=== PATIENT | male | born 1965 | race Caucasian/White ===

== ENCOUNTER 2017-08-12 19:37 | Emergency (ER) | payer OTHER ==
[~2017-08-12] VITALS: Ht 177.8 cm; Wt 77.1 kg
[2017-08-12 19:48] VITALS: BP 147/87
[2017-08-12] MEDS ORDERED: IBUPROFEN 600 MG TAB PO ONE (23:15)
== END 2017-08-13 00:04 | disposition home or self-care (01) ==
LOC: EDBD 19:37 → ER 19:37
DX: S70.01XA Contusion of right hip, initial encounter (principal); F17.210 Nicotine dependence, cigarettes, uncomplicated; V03.99XA Pedestrian with other conveyance injured in collision with car, pick-up truck or van, unspecified whether traffic or nontraffic accident, initial encounter; Y93.89 Activity, other specified; Y92.89 Other specified places as the place of occurrence of the external cause; Y99.8 Other external cause status
CPT/HCPCS: 73502

== ENCOUNTER 2017-09-14 19:31 | Emergency (ER) | payer MEDICAID ==
[~2017-09-14] VITALS: Ht 177.8 cm; Wt 70.3 kg
[2017-09-14 20:40] LABS: Basophils # (auto) 0.1 uL; Eosinophils # (auto) 0 uL; Eosinophils % (auto) 0.3 % (0.0-7.0); Hematocrit 33.4 % (41.0-53.0); Hemoglobin 11.6 g/dL (13.5-17.5); Lymphocytes # (auto) 1.7 uL; Mean Corpuscular Hemoglobin 29.9 pg (28.0-32.0); Mean Corpuscular Hgb Conc. 34.6 g/dL (32.0-36.0); Mean Corpuscular Volume 86.2 fL (80.0-100.0); Mean Platelet Volume 6.7 fL (6.9-10.8); Monocytes # (auto) 0.6 uL; Monocytes % (auto) 11.3 % (0.0-12.0); Neutrophils # (auto) 2.9 uL; Neutrophils % (auto) 54.4 % (37.0-80.0); Nucleated Red Blood Cells % 0.3 %; Platelet Count (auto) 275 10^3/uL (140-450); White Blood Cell 5.3 10^3/uL (4.4-10.8)
[2017-09-14 20:59] LABS: BUN/Creatinine Ratio 11.7; Calcium 8.5 mg/dL (8.5-10.1); Potassium 4.6 mmol/L (3.5-5.1)
[2017-09-14 21:02] LABS: Bilirubin, Total 0.2 mg/dL (0.2-1.0); Total Protein 9.9 g/dL (6.4-8.2)
[2017-09-15 02:53] LABS: Urine Bilirubin Negative (Negative); Urine Blood 2+ /uL (Negative); Urine Color Yellow (Yellow); Urine Glucose Normal (Normal); Urine Ketone Negative (Negative); Urine Nitrite Negative (Negative); Urine RBC 27 /hpf (0 - 3); Urine Squamous Epithelial Cell FEW /hpf (<5); Urine Urobilinogen Normal (Negative)
[2017-09-15 09:38] VITALS: BP 129/83
== END 2017-09-15 10:48 | disposition home or self-care (01) ==
LOC: ER 19:31
DX: N43.3 Hydrocele, unspecified (principal); N39.0 Urinary tract infection, site not specified; R59.0 Localized enlarged lymph nodes; E44.1 Mild protein-calorie malnutrition; F17.210 Nicotine dependence, cigarettes, uncomplicated; Z68.22 Body mass index [BMI] 22.0-22.9, adult; Z90.49 Acquired absence of other specified parts of digestive tract
CPT/HCPCS: 36415; 74176; 76870; 80053; 81001; 85025

== ENCOUNTER 2017-10-28 08:36 | Inpatient (IN) | payer MEDICAID, OTHER ==
[~2017-10-28] VITALS: Ht 177.8 cm; Wt 68.0 kg
[2017-10-28 09:48] LABS: Basophils # (auto) 0 uL; Basophils % (auto) 0.1 % (0.0-2.0); Eosinophils # (auto) 0 uL; Eosinophils % (auto) 0.1 % (0.0-7.0); Hematocrit 37.1 % (41.0-53.0); Hemoglobin 12.4 g/dL (13.5-17.5); Lymphocytes # (auto) 0.4 uL; Lymphocytes % (auto) 11.5 % (10.0-50.0); Mean Corpuscular Hemoglobin 27.4 pg (28.0-32.0); Mean Corpuscular Hgb Conc. 33.5 g/dL (32.0-36.0); Mean Corpuscular Volume 81.5 fL (80.0-100.0); Monocytes # (auto) 0.1 uL; Monocytes % (auto) 3.5 % (0.0-12.0); Neutrophils # (auto) 3.1 uL; Neutrophils % (auto) 84.8 % (37.0-80.0); Nucleated Red Blood Cells % 0.6 %; Platelet Count (auto) 230 10^3/uL (140-450); Red Blood Cells 4.55 10^6/uL (4.5-5.90); Red Cell Distribution Width 15.8 % (11.8-14.3); White Blood Cell 3.7 10^3/uL (4.4-10.8)
[2017-10-28 10:02] LABS: Albumin 1.8 g/dL (3.4-5.0); Anion Gap 13 (5-15); Calcium 9.1 mg/dL (8.5-10.1); Carbon Dioxide 17 mmol/L (21-32); Chloride 103 mmol/L (98-107); Glucose 75 mg/dL (74-106); Magnesium 2.6 mg/dL (1.6-2.6); Potassium 4.1 mmol/L (3.5-5.1); Sodium 133 mmol/L (136-145)
[2017-10-28 10:05] LABS: Alanine Aminotransferase 17 U/L (16-61); Aspartate Aminotransferase 41 U/L (15-37); GFR African American 24 mL/min; GFR Non-African American 20 mL/min
[2017-10-28 10:08] LABS: BUN/Creatinine Ratio 26.9; Blood Urea Nitrogen 94 mg/dL (7-18)
[2017-10-28 10:09] LABS: Alkaline Phosphatase 187 U/L (45-117); Bilirubin, Total 0.6 mg/dL (0.2-1.0); Total Protein 8.3 g/dL (6.4-8.2)
[2017-10-28 10:53] LABS: Lactic Acid w/Reflex 2.3 mmol/L (0.4-2.0)
[2017-10-28] MEDS ORDERED: AZITHROMYCIN 500MG/ 250ML 250 ML IV ONE (11:00)
[2017-10-28] MEDS ORDERED: cefTRIAXone 1GM/10ml IVPUSH 10 ML IV ONE (11:00)
[2017-10-28] MEDS ORDERED: SODIUM CHLORIDE 0.9% 1,000 ML IV ONE (11:04)
[2017-10-28] MEDS: SODIUM CHLORIDE 0.9% 1,000 ML IV ONE ×2 (11:26→11:35)
[2017-10-28] MEDS ORDERED: MORPHINE SULFATE 4 MG/ML SYR/VIAL IV PRN (11:30)
[2017-10-28] MEDS ORDERED: SODIUM CHLORIDE 0.9% 2,000 ML IV ONE (11:30)
[2017-10-28] MEDS ORDERED: ACETAMINOPHEN 325 MG TAB PO PRN ×2 (11:30)
[2017-10-28] MEDS ORDERED: ONDANSETRON HCL 4 MG/2 ML VIAL IV PRN (11:30)
[2017-10-28] MEDS ORDERED: NITROGLYCERIN 0.4 MG SL TAB SL PRN (11:30)
[2017-10-28] MEDS ORDERED: OSELTAMIVIR 30 MG CAP PO SCH (12:00)
[2017-10-28] MEDS: HYDROcodone-ACET 5/325MG TAB PO PRN (12:27)
[2017-10-28] MEDS: IPRATROPIUM BROM 0.5 MG/2.5ML INH SOL NEB SCH ×2 (13:05→18:54)
[2017-10-28] MEDS: ALBUTEROL SULF 2.5 MG/0.5ML(0.5%) NEB SOLN NEB SCH ×2 (13:05→18:54)
[2017-10-28] MEDS: SODIUM CHLORIDE 0.9% 1,000 ML IV SCH ×2 (13:06→21:11)
[2017-10-28] MEDS: BOOST PLUS 8 ounce PO SCH ×3 (13:15→21:11)
[2017-10-28 16:42] LABS: Lactic Acid w/Reflex 2.4 mmol/L (0.4-2.0)
[2017-10-28] MEDS ORDERED: INFLUENZA QUAD 2017-2018 0.5 ML SYRG IM ONE (16:45)
[2017-10-28] MEDS ORDERED: PNEUMOCOCCAL VACC POLYS 25 MCG/0.5 ML VIAL IM ONE (16:45)
[2017-10-28] MEDS: MORPHINE SULFATE 4 MG/ML SYR/VIAL IV PRN ×2 (16:59→22:58)
[2017-10-28 17:00] VITALS: BP 109/72
[2017-10-28 20:00] VITALS: BP 108/60
[2017-10-28 20:52] VITALS: BP 109/72
[2017-10-28] MEDS: ASCORBIC ACID 500 MG TAB PO SCH (21:16)
[2017-10-28] MEDS: FAMOTIDINE 20 MG TAB PO SCH (21:16)
[2017-10-28 22:00] VITALS: BP 108/60
[2017-10-28] MEDS ORDERED: OSELTAMIVIR 75 MG CAP PO SCH (22:00)
[2017-10-29] MEDS: ALBUTEROL SULF 2.5 MG/0.5ML(0.5%) NEB SOLN NEB SCH ×4 (00:44→19:15)
[2017-10-29] MEDS: IPRATROPIUM BROM 0.5 MG/2.5ML INH SOL NEB SCH ×4 (00:44→19:15)
[2017-10-29] MEDS: MORPHINE SULFATE 4 MG/ML SYR/VIAL IV PRN (03:00)
[2017-10-29 04:09] LABS: Urine Bacteria NONE SEEN /hpf (None Seen); Urine Blood 1+ /uL (Negative); Urine Hyaline Cast FEW /lpf (0 - 2); Urine Mucus FEW (None Seen); Urine Specific Gravity 1.018 (1.001-1.035); Urine WBC 3 /hpf (0 - 3)
[2017-10-29] MEDS: BOOST PLUS 8 ounce PO SCH ×4 (05:13→22:00)
[2017-10-29] MEDS: SODIUM CHLORIDE 0.9% 1,000 ML IV SCH ×3 (05:14→18:19)
[2017-10-29 05:57] LABS: Hematocrit 33.5 % (41.0-53.0); Mean Corpuscular Hgb Conc. 32.8 g/dL (32.0-36.0); White Blood Cell 6.5 10^3/uL (4.4-10.8)
[2017-10-29 05:59] LABS: Mean Corpuscular Hemoglobin 26.8 pg (28.0-32.0); Mean Corpuscular Volume 81.7 fL (80.0-100.0); Platelet Count (auto) 213 10^3/uL (140-450)
[2017-10-29 06:00] VITALS: BP_SYST 106; BP_SYST 110; BP_DIAS 65; BP_DIAS 66
[2017-10-29 06:10] LABS: Basophils % (manual) 0 (0.0-2.0); Eosinophils % (manual) 0 (0-7); Metamyelocytes % 0
[2017-10-29 06:11] LABS: Blast Cells 0; Myelocytes % 0; Promyelocytes % 0
[2017-10-29 06:12] LABS: Albumin 1.4 g/dL (3.4-5.0); BUN/Creatinine Ratio 32.6; Calcium 8.3 mg/dL (8.5-10.1); Potassium 4.1 mmol/L (3.5-5.1)
[2017-10-29 06:15] LABS: Bilirubin, Total 0.5 mg/dL (0.2-1.0)
[2017-10-29 06:52] LABS: Band Neutrophils % (manual) 21; Lymphocytes % (manual) 16 (10.0-50.0); Monocytes % (manual) 7 (0-12); Reactive Lymphocytes 1
[2017-10-29] MEDS: cefTRIAXone 1GM/10ml IVPUSH 10 ML IV SCH (09:14)
[2017-10-29] MEDS: AZITHROMYCIN 500MG/ 250ML 250 ML IV SCH (10:47)
[2017-10-29] MEDS: FAMOTIDINE 20 MG TAB PO SCH ×2 (10:47→21:53)
[2017-10-29] MEDS: ASCORBIC ACID 500 MG TAB PO SCH ×2 (10:47→21:54)
[2017-10-29] MEDS: MULTIPLE VITAMIN TAB PO SCH (10:47)
[2017-10-29 13:00] VITALS: BP 124/71
[2017-10-29 17:00] VITALS: BP 116/67
[2017-10-29 21:48] VITALS: BP 130/73
[2017-10-30 05:05] VITALS: BP 139/73
[2017-10-30] MEDS: IPRATROPIUM BROM 0.5 MG/2.5ML INH SOL NEB SCH ×4 (05:56→19:12)
[2017-10-30] MEDS: ALBUTEROL SULF 2.5 MG/0.5ML(0.5%) NEB SOLN NEB SCH ×4 (05:56→19:12)
[2017-10-30] MEDS: BOOST PLUS 8 ounce PO SCH ×4 (06:00→23:00)
[2017-10-30] MEDS: SODIUM CHLORIDE 0.9% 1,000 ML IV SCH ×2 (06:46→15:30)
[2017-10-30 07:25] LABS: Basophils # (auto) 0 uL; Eosinophils # (auto) 0 uL; Monocytes # (auto) 0.2 uL
[2017-10-30 07:29] LABS: Basophils % (auto) 0.1 % (0.0-2.0); Eosinophils % (auto) 0.1 % (0.0-7.0); Hematocrit 33.2 % (41.0-53.0); Hemoglobin 11.2 g/dL (13.5-17.5); Lymphocytes # (auto) 0.9 uL; Lymphocytes % (auto) 8.9 % (10.0-50.0); Mean Corpuscular Hemoglobin 27.1 pg (28.0-32.0); Mean Corpuscular Hgb Conc. 33.6 g/dL (32.0-36.0); Mean Corpuscular Volume 80.5 fL (80.0-100.0); Monocytes % (auto) 2.2 % (0.0-12.0); Neutrophils # (auto) 8.6 uL; Neutrophils % (auto) 88.7 % (37.0-80.0); Nucleated Red Blood Cells % 0.2 %; Platelet Count (auto) 238 10^3/uL (140-450); Red Blood Cells 4.13 10^6/uL (4.5-5.90); Red Cell Distribution Width 16.1 % (11.8-14.3); White Blood Cell 9.7 10^3/uL (4.4-10.8)
[2017-10-30 07:43] LABS: BUN/Creatinine Ratio 41.6; Calcium 9.5 mg/dL (8.5-10.1); Potassium 4.2 mmol/L (3.5-5.1)
[2017-10-30 08:49] VITALS: BP 122/74
[2017-10-30] MEDS: cefTRIAXone 1GM/10ml IVPUSH 10 ML IV SCH (10:22)
[2017-10-30] MEDS: AZITHROMYCIN 500MG/ 250ML 250 ML IV SCH (10:22)
[2017-10-30] MEDS: ASCORBIC ACID 500 MG TAB PO SCH ×2 (10:22→23:00)
[2017-10-30] MEDS: FAMOTIDINE 20 MG TAB PO SCH ×2 (10:22→23:00)
[2017-10-30] MEDS: MULTIPLE VITAMIN TAB PO SCH (10:22)
[2017-10-30 12:48] VITALS: BP 116/73
[2017-10-30 16:36] VITALS: BP 126/68
[2017-10-30 22:00] VITALS: BP 138/86
[2017-10-31] MEDS: SODIUM CHLORIDE 0.9% 1,000 ML IV SCH ×3 (00:02→17:33)
[2017-10-31] MEDS: IPRATROPIUM BROM 0.5 MG/2.5ML INH SOL NEB SCH ×5 (00:23→22:33)
[2017-10-31] MEDS: ALBUTEROL SULF 2.5 MG/0.5ML(0.5%) NEB SOLN NEB SCH ×5 (00:23→22:33)
[2017-10-31 05:00] VITALS: BP 129/72
[2017-10-31] MEDS: BOOST PLUS 8 ounce PO SCH ×4 (06:00→22:00)
[2017-10-31 07:03] LABS: Mean Corpuscular Hemoglobin 26.4 pg (28.0-32.0); Platelet Count (auto) 212 10^3/uL (140-450)
[2017-10-31 07:06] LABS: Hematocrit 30.9 % (41.0-53.0); Hemoglobin 10.2 g/dL (13.5-17.5); Mean Corpuscular Hgb Conc. 32.8 g/dL (32.0-36.0); Mean Corpuscular Volume 80.4 fL (80.0-100.0); Red Blood Cells 3.85 10^6/uL (4.5-5.90); White Blood Cell 11.3 10^3/uL (4.4-10.8)
[2017-10-31 07:20] LABS: Band Neutrophils % (manual) 0; Basophils % (manual) 0 (0.0-2.0); Blast Cells 0; Eosinophils % (manual) 0 (0-7); Promyelocytes % 0; Reactive Lymphocytes 0
[2017-10-31 07:23] LABS: BUN/Creatinine Ratio 40.9; Calcium 9.2 mg/dL (8.5-10.1); Potassium 4.3 mmol/L (3.5-5.1)
[2017-10-31 08:00] VITALS: BP 140/80
[2017-10-31 08:18] LABS: Lymphocytes % (manual) 7 (10.0-50.0); Metamyelocytes % 1; Monocytes % (manual) 4 (0-12); Myelocytes % 1
[2017-10-31 09:00] VITALS: BP 140/80
[2017-10-31] MEDS: cefTRIAXone 1GM/10ml IVPUSH 10 ML IV SCH (09:17)
[2017-10-31] MEDS: MULTIPLE VITAMIN TAB PO SCH (09:18)
[2017-10-31] MEDS: AZITHROMYCIN 500MG/ 250ML 250 ML IV SCH (09:18)
[2017-10-31] MEDS: ASCORBIC ACID 500 MG TAB PO SCH ×2 (09:18→23:02)
[2017-10-31] MEDS: FAMOTIDINE 20 MG TAB PO SCH ×2 (09:19→22:00)
[2017-10-31 16:59] VITALS: BP 141/81
[2017-10-31 22:00] VITALS: BP 115/75
[2017-10-31 22:41] VITALS: BP 115/75
[2017-11-01] MEDS: SODIUM CHLORIDE 0.9% 1,000 ML IV SCH ×3 (01:05→18:07)
[2017-11-01 05:00] VITALS: BP 123/73
[2017-11-01] MEDS: BOOST PLUS 8 ounce PO SCH ×4 (05:49→22:23)
[2017-11-01 06:50] LABS: Hematocrit 31.6 % (41.0-53.0); Hemoglobin 10.5 g/dL (13.5-17.5); Mean Corpuscular Hemoglobin 27.5 pg (28.0-32.0); Mean Corpuscular Hgb Conc. 33.4 g/dL (32.0-36.0); Mean Corpuscular Volume 82.5 fL (80.0-100.0); Platelet Count (auto) 162 10^3/uL (140-450); Red Blood Cells 3.83 10^6/uL (4.5-5.90); Red Cell Distribution Width 15.9 % (11.8-14.3)
[2017-11-01 06:59] LABS: BUN/Creatinine Ratio 37.7; Calcium 9.2 mg/dL (8.5-10.1); Potassium 3.9 mmol/L (3.5-5.1)
[2017-11-01 07:17] LABS: Band Neutrophils % (manual) 0
[2017-11-01 07:18] LABS: Basophils % (manual) 0 (0.0-2.0); Blast Cells 0; Eosinophils % (manual) 0 (0-7); Metamyelocytes % 0; Myelocytes % 0; Promyelocytes % 0; Reactive Lymphocytes 0
[2017-11-01] MEDS: IPRATROPIUM BROM 0.5 MG/2.5ML INH SOL NEB SCH ×3 (07:25→18:39)
[2017-11-01] MEDS: ALBUTEROL SULF 2.5 MG/0.5ML(0.5%) NEB SOLN NEB SCH ×3 (07:25→18:39)
[2017-11-01 08:00] VITALS: BP 112/71
[2017-11-01 08:32] LABS: Lymphocytes % (manual) 7 (10.0-50.0); Monocytes % (manual) 6 (0-12)
[2017-11-01] MEDS: cefTRIAXone 1GM/10ml IVPUSH 10 ML IV SCH (09:18)
[2017-11-01] MEDS: MULTIPLE VITAMIN TAB PO SCH (09:20)
[2017-11-01] MEDS: AZITHROMYCIN 500MG/ 250ML 250 ML IV SCH (09:20)
[2017-11-01] MEDS: ASCORBIC ACID 500 MG TAB PO SCH ×2 (09:20→22:23)
[2017-11-01 11:18] LABS: INR 0.99 (0.9-1.15); Prothrombin Time 10.8 sec (9.37-12.3)
[2017-11-01] MEDS: FAMOTIDINE 20 MG TAB PO SCH ×2 (11:38→22:23)
[2017-11-01 12:16] VITALS: BP 143/81
[2017-11-01] MEDS ORDERED: LIDOCAINE 2%HCL (LOCAL ANESTH.) INJ 20ML MDV ONE (13:07)
[2017-11-01] MEDS ORDERED: MIDAZOLAM HCL 1MG/1ML-2 ML VIAL ONE (13:18)
[2017-11-01] MEDS ORDERED: fentaNYL CITRATE 100 MCG/2 ML VL ONE (13:18)
[2017-11-01 14:35] VITALS: BP 143/81
[2017-11-01 14:47] LABS: Partial Thromboplastin Time 28.9 sec (22.64-33.71); Prothrombin Time 10.9 sec (9.37-12.3)
[2017-11-01 16:41] VITALS: BP 140/78
[2017-11-01 18:18] LABS: BUN/Creatinine Ratio 36.2; Calcium 8.7 mg/dL (8.5-10.1); Potassium 3.8 mmol/L (3.5-5.1)
[2017-11-01 22:00] VITALS: BP 138/81
[2017-11-02] MEDS: SODIUM CHLORIDE 0.9% 1,000 ML IV SCH ×3 (01:31→17:44)
[2017-11-02] MEDS: BOOST PLUS 8 ounce PO SCH ×4 (04:32→22:04)
[2017-11-02 05:00] VITALS: BP 136/76
[2017-11-02] MEDS: IPRATROPIUM BROM 0.5 MG/2.5ML INH SOL NEB SCH ×3 (06:12→19:07)
[2017-11-02] MEDS: ALBUTEROL SULF 2.5 MG/0.5ML(0.5%) NEB SOLN NEB SCH ×3 (06:12→19:08)
[2017-11-02 06:15] LABS: Mean Corpuscular Hemoglobin 26.2 pg (28.0-32.0); White Blood Cell 8.1 10^3/uL (4.4-10.8)
[2017-11-02 06:18] LABS: Hematocrit 31.3 % (41.0-53.0); Hemoglobin 10.4 g/dL (13.5-17.5); Mean Corpuscular Hgb Conc. 33.2 g/dL (32.0-36.0); Mean Corpuscular Volume 78.9 fL (80.0-100.0); Platelet Count (auto) 140 10^3/uL (140-450); Red Blood Cells 3.96 10^6/uL (4.5-5.90); Red Cell Distribution Width 15.8 % (11.8-14.3)
[2017-11-02 06:26] LABS: Basophils % (manual) 0 (0.0-2.0); Blast Cells 0; Eosinophils % (manual) 0 (0-7); Metamyelocytes % 0; Myelocytes % 0; Promyelocytes % 0; Reactive Lymphocytes 0
[2017-11-02 06:29] LABS: BUN/Creatinine Ratio 33.7; Calcium 8.6 mg/dL (8.5-10.1); Potassium 3.8 mmol/L (3.5-5.1)
[2017-11-02] MEDS ORDERED: fentaNYL CITRATE 100 MCG/2 ML VL ONE (08:24)
[2017-11-02] MEDS ORDERED: MIDAZOLAM HCL 1MG/1ML-2 ML VIAL ONE (08:24)
[2017-11-02] MEDS ORDERED: ROCURONIUM 10MG/ML 10ML VIAL IV ONE (08:25)
[2017-11-02] MEDS ORDERED: ceFAZolin 1GM/50ML 50 ML IV ONE (08:34)
[2017-11-02] MEDS ORDERED: PROPOFOL 10 MG/ML 20 ML IV ONE (08:41)
[2017-11-02] MEDS ORDERED: SUCCINYLCHOLINE CHLORIDE 20 MG/ML 10ML VIAL IV ONE (08:42)
[2017-11-02 09:00] VITALS: BP 122/78
[2017-11-02] MEDS: cefTRIAXone 1GM/10ml IVPUSH 10 ML IV SCH (09:00)
[2017-11-02] MEDS ORDERED: ONDANSETRON HCL 4 MG/2 ML VIAL ONE (09:16)
[2017-11-02] MEDS ORDERED: NEOSTIGMINE 1 MG/ML INJ (10mg/10ML VIAL) ONE (09:16)
[2017-11-02] MEDS ORDERED: GLYCOPYRROLATE 0.2 MG/ML 1ML VIAL ONE (09:17)
[2017-11-02] MEDS ORDERED: HYDROmorphone HCL 2 MG/ML VL IV PRN (09:45)
[2017-11-02] MEDS ORDERED: METOCLOPRAMIDE HCL 5MG/ml INJ 2ml VIAL IV ONE (09:45)
[2017-11-02] MEDS: AZITHROMYCIN 500MG/ 250ML 250 ML IV SCH (09:53)
[2017-11-02] MEDS: FAMOTIDINE 20 MG TAB PO SCH ×2 (09:53→22:04)
[2017-11-02] MEDS: MULTIPLE VITAMIN TAB PO SCH (09:53)
[2017-11-02] MEDS: ASCORBIC ACID 500 MG TAB PO SCH ×2 (09:54→22:05)
[2017-11-02] MEDS ORDERED: MORPHINE SULFATE 4 MG/ML SYR/VIAL ONE (10:03)
[2017-11-02] MEDS ORDERED: MORPHINE SULFATE 4 MG/ML SYR/VIAL IV ONE (10:15)
[2017-11-02] MEDS ORDERED: TUBERCULIN PPD 5 UNIT/0.1 ML ID ONE (11:00)
[2017-11-02 11:06] LABS: Band Neutrophils % (manual) 2; Lymphocytes % (manual) 8 (10.0-50.0); Monocytes % (manual) 3 (0-12)
[2017-11-02 13:00] VITALS: BP 116/78
[2017-11-02 16:59] VITALS: BP 120/73
[2017-11-02] MEDS ORDERED: cefTRIAXone 1GM/10ml IVPUSH 10 ML IV ONE (17:45)
[2017-11-02] MEDS: HYDROcodone-ACET 5/325MG TAB PO PRN (18:26)
[2017-11-02 19:57] LABS: Basophils % (manual) 0 (0.0-2.0); Blast Cells 0; Monocytes % (manual) 0 (0-12); Promyelocytes % 0
[2017-11-02 20:34] LABS: Platelet Count (auto) 137 10^3/uL (140-450)
[2017-11-02 21:15] LABS: Band Neutrophils % (manual) 4; Eosinophils % (manual) 3 (0-7); Lymphocytes % (manual) 10 (10.0-50.0); Metamyelocytes % 1; Myelocytes % 1; Reactive Lymphocytes 1
[2017-11-02 21:56] VITALS: BP 118/71
[2017-11-03] MEDS: ALBUTEROL SULF 2.5 MG/0.5ML(0.5%) NEB SOLN NEB SCH ×4 (00:48→18:00)
[2017-11-03] MEDS: IPRATROPIUM BROM 0.5 MG/2.5ML INH SOL NEB SCH ×4 (00:48→18:00)
[2017-11-03] MEDS: SODIUM CHLORIDE 0.9% 1,000 ML IV SCH ×3 (01:49→12:43)
[2017-11-03] MEDS: HYDROcodone-ACET 5/325MG TAB PO PRN ×3 (03:04→22:25)
[2017-11-03 05:00] VITALS: BP 113/70
[2017-11-03 05:40] LABS: Mean Corpuscular Volume 82.8 fL (80.0-100.0)
[2017-11-03 05:43] LABS: Hematocrit 32.9 % (41.0-53.0); Hemoglobin 10.9 g/dL (13.5-17.5); Mean Corpuscular Hemoglobin 27.3 pg (28.0-32.0); Platelet Count (auto) 138 10^3/uL (140-450); Red Blood Cells 3.98 10^6/uL (4.5-5.90); Red Cell Distribution Width 15.9 % (11.8-14.3); White Blood Cell 7.2 10^3/uL (4.4-10.8)
[2017-11-03 05:47] LABS: BUN/Creatinine Ratio 31.3; Basophils % (manual) 0 (0.0-2.0); Blast Cells 0; Calcium 8.1 mg/dL (8.5-10.1); Eosinophils % (manual) 0 (0-7); Metamyelocytes % 0; Myelocytes % 0; Potassium 4.4 mmol/L (3.5-5.1); Promyelocytes % 0; Reactive Lymphocytes 0
[2017-11-03] MEDS: BOOST PLUS 8 ounce PO SCH ×3 (06:02→22:25)
[2017-11-03 07:39] LABS: Band Neutrophils % (manual) 5; Lymphocytes % (manual) 3 (10.0-50.0); Monocytes % (manual) 3 (0-12)
[2017-11-03 09:00] VITALS: BP 129/74
[2017-11-03] MEDS: ASCORBIC ACID 500 MG TAB PO SCH ×2 (09:56→22:25)
[2017-11-03] MEDS: cefTRIAXone 1GM/10ml IVPUSH 10 ML IV SCH (09:56)
[2017-11-03] MEDS: MULTIPLE VITAMIN TAB PO SCH (09:56)
[2017-11-03] MEDS: FAMOTIDINE 20 MG TAB PO SCH ×2 (09:56→22:25)
[2017-11-03] MEDS: AZITHROMYCIN 500MG/ 250ML 250 ML IV SCH (09:56)
[2017-11-03 13:00] VITALS: BP 118/76
[2017-11-03] MEDS: MORPHINE SULFATE 4 MG/ML SYR/VIAL IV PRN (16:17)
[2017-11-03 16:41] VITALS: BP 132/75
[2017-11-03 22:00] VITALS: BP 126/80
[2017-11-04] MEDS: SODIUM CHLORIDE 0.9% 1,000 ML IV SCH ×3 (04:45→18:53)
[2017-11-04] MEDS: MORPHINE SULFATE 4 MG/ML SYR/VIAL IV PRN (04:45)
[2017-11-04 05:00] VITALS: BP 128/80
[2017-11-04] MEDS: BOOST PLUS 8 ounce PO SCH ×4 (05:41→22:04)
[2017-11-04] MEDS: IPRATROPIUM BROM 0.5 MG/2.5ML INH SOL NEB SCH ×5 (07:02→19:00)
[2017-11-04] MEDS: ALBUTEROL SULF 2.5 MG/0.5ML(0.5%) NEB SOLN NEB SCH ×5 (07:02→19:00)
[2017-11-04 09:00] VITALS: BP 148/76
[2017-11-04 09:16] VITALS: BP 128/80
[2017-11-04] MEDS: cefTRIAXone 1GM/10ml IVPUSH 10 ML IV SCH (09:17)
[2017-11-04] MEDS: MULTIPLE VITAMIN TAB PO SCH (09:18)
[2017-11-04] MEDS: ASCORBIC ACID 500 MG TAB PO SCH ×2 (09:18→22:04)
[2017-11-04] MEDS: FAMOTIDINE 20 MG TAB PO SCH ×2 (09:18→22:03)
[2017-11-04] MEDS: AZITHROMYCIN 500MG/ 250ML 250 ML IV SCH (09:18)
[2017-11-04 12:57] VITALS: BP 137/76
[2017-11-04] MEDS ORDERED: MEPERIDINE HCL (50 MG/ML) 1 ML VIAL IM ONE (13:30)
[2017-11-04] MEDS ORDERED: LIDOCAINE 2%HCL (LOCAL ANESTH.) INJ 20ML MDV IJ ONE (13:30)
[2017-11-04] MEDS ORDERED: LIDOCAINE HCL 2 % INJ 2ML MPF ONE (13:36)
[2017-11-04] MEDS ORDERED: SODIUM CHLORIDE LOCK 10 ML ONE ×2 (13:58→14:05)
[2017-11-04 13:59] LABS: Protein, Urine 117.7 mg/dL (0.0-11.9)
[2017-11-04] MEDS ORDERED: MIDAZOLAM HCL 5 MG/ML-1ML VIAL ONE (13:59)
[2017-11-04] MEDS ORDERED: LIDOCAINE 2%HCL (LOCAL ANESTH.) INJ 20ML MDV ONE (14:04)
[2017-11-04] MEDS ORDERED: LIDOCAINE HCL 2% TOP JELLY 5ML TOP ONE (14:05)
[2017-11-04] MEDS ORDERED: EPINEPHrine HCL 1 MG/1 ML AMP ONE (14:06)
[2017-11-04] MEDS ORDERED: BENZOCAINE (DENTAL) 20 % SPRAY 60ML MT ONE (14:21)
[2017-11-04] MEDS: MIDAZOLAM HCL 5 MG/ML-1ML VIAL ONE ×5 (14:22→14:33)
[2017-11-04] MEDS ORDERED: SODIUM CHLORIDE LOCK 20 ML ONE (14:46)
[2017-11-04] MEDS ORDERED: NICOTINE 21MG/24 HR TOPICAL PATCH TD ONE (16:30)
[2017-11-04 17:00] VITALS: BP 134/80
[2017-11-04 22:00] VITALS: BP 124/83
[2017-11-05] MEDS: IPRATROPIUM BROM 0.5 MG/2.5ML INH SOL NEB SCH ×5 (00:33→23:50)
[2017-11-05] MEDS: ALBUTEROL SULF 2.5 MG/0.5ML(0.5%) NEB SOLN NEB SCH ×5 (00:33→23:50)
[2017-11-05 05:00] VITALS: BP 131/71
[2017-11-05] MEDS: SODIUM CHLORIDE 0.9% 1,000 ML IV SCH ×3 (05:00→21:33)
[2017-11-05] MEDS: BOOST PLUS 8 ounce PO SCH ×4 (06:26→23:33)
[2017-11-05] MEDS: MORPHINE SULFATE 4 MG/ML SYR/VIAL IV PRN ×4 (07:46→23:34)
[2017-11-05 09:00] VITALS: BP 125/81
[2017-11-05] MEDS: MULTIPLE VITAMIN TAB PO SCH (10:13)
[2017-11-05] MEDS: ASCORBIC ACID 500 MG TAB PO SCH ×2 (10:13→23:33)
[2017-11-05] MEDS: AZITHROMYCIN 250 MG TAB PO SCH (10:13)
[2017-11-05] MEDS: FAMOTIDINE 20 MG TAB PO SCH ×2 (10:13→23:33)
[2017-11-05] MEDS: NICOTINE 21MG/24 HR TOPICAL PATCH TD SCH (10:14)
[2017-11-05] MEDS: cefTRIAXone 1GM/10ml IVPUSH 10 ML IV SCH (10:18)
[2017-11-05 13:00] VITALS: BP 132/77
[2017-11-05 17:00] VITALS: BP 143/80
[2017-11-05 22:36] VITALS: BP 121/77
[2017-11-06 05:37] VITALS: BP 119/84
[2017-11-06] MEDS: SODIUM CHLORIDE 0.9% 1,000 ML IV SCH ×3 (05:50→21:17)
[2017-11-06] MEDS: BOOST PLUS 8 ounce PO SCH ×4 (06:00→22:00)
[2017-11-06] MEDS: IPRATROPIUM BROM 0.5 MG/2.5ML INH SOL NEB SCH ×3 (06:00→18:00)
[2017-11-06] MEDS: ALBUTEROL SULF 2.5 MG/0.5ML(0.5%) NEB SOLN NEB SCH ×3 (06:00→18:00)
[2017-11-06 07:09] LABS: Basophils # (auto) 0.1 uL; Basophils % (auto) 0.6 % (0.0-2.0); Eosinophils # (auto) 0 uL; Eosinophils % (auto) 0.4 % (0.0-7.0); Hematocrit 29.1 % (41.0-53.0); Hemoglobin 9.7 g/dL (13.5-17.5); Lymphocytes # (auto) 1.2 uL; Lymphocytes % (auto) 12.7 % (10.0-50.0); Mean Corpuscular Hgb Conc. 33.3 g/dL (32.0-36.0); Monocytes # (auto) 0.7 uL; Monocytes % (auto) 7.9 % (0.0-12.0); Neutrophils # (auto) 7.1 uL; Neutrophils % (auto) 78.4 % (37.0-80.0); Nucleated Red Blood Cells % 0.2 %; Platelet Count (auto) 430 10^3/uL (140-450); Red Blood Cells 3.59 10^6/uL (4.5-5.90); Red Cell Distribution Width 15.4 % (11.8-14.3)
[2017-11-06 07:16] LABS: Albumin 1.1 g/dL (3.4-5.0); BUN/Creatinine Ratio 18.5; Bilirubin, Total 0.2 mg/dL (0.2-1.0); Calcium 7.6 mg/dL (8.5-10.1); Potassium 3.7 mmol/L (3.5-5.1); Total Protein 6.4 g/dL (6.4-8.2)
[2017-11-06 09:00] VITALS: BP 135/75
[2017-11-06] MEDS: cefTRIAXone 1GM/10ml IVPUSH 10 ML IV SCH (09:00)
[2017-11-06] MEDS: FAMOTIDINE 20 MG TAB PO SCH ×2 (10:31→21:14)
[2017-11-06] MEDS: MULTIPLE VITAMIN TAB PO SCH (10:31)
[2017-11-06] MEDS: AZITHROMYCIN 250 MG TAB PO SCH (10:32)
[2017-11-06] MEDS: ASCORBIC ACID 500 MG TAB PO SCH ×2 (10:32→21:14)
[2017-11-06] MEDS: NICOTINE 21MG/24 HR TOPICAL PATCH TD SCH (10:33)
[2017-11-06 12:51] VITALS: BP 129/78
[2017-11-06] MEDS ORDERED: VANCOMYCIN PER PHARMACY 0 MG IV SCH (13:30)
[2017-11-06 17:00] VITALS: BP 130/77
[2017-11-06] MEDS: VANCOMYCIN 1,250 MG in D5W 5% 250 ML IV SCH ×2 (21:15→21:17)
[2017-11-06] MEDS: HYDROcodone-ACET 5/325MG TAB PO PRN (21:15)
[2017-11-07] VITALS (7 sets, daily range): BP systolic 126–140; BP diastolic 74–94
[2017-11-07] MEDS: BOOST PLUS 8 ounce PO SCH ×4 (06:00→21:24)
[2017-11-07 06:36] LABS: Albumin 1.2 g/dL (3.4-5.0); Potassium 3.7 mmol/L (3.5-5.1)
[2017-11-07 06:43] LABS: BUN/Creatinine Ratio 18.1; Bilirubin, Total 0.3 mg/dL (0.2-1.0); Total Protein 6.7 g/dL (6.4-8.2)
[2017-11-07] MEDS: SODIUM CHLORIDE 0.9% 1,000 ML IV SCH ×3 (06:44→23:30)
[2017-11-07] MEDS: IPRATROPIUM BROM 0.5 MG/2.5ML INH SOL NEB SCH ×4 (06:46→18:00)
[2017-11-07] MEDS: ALBUTEROL SULF 2.5 MG/0.5ML(0.5%) NEB SOLN NEB SCH ×4 (06:46→18:00)
[2017-11-07] MEDS: cefTRIAXone 1GM/10ml IVPUSH 10 ML IV SCH (10:46)
[2017-11-07] MEDS: AZITHROMYCIN 250 MG TAB PO SCH (11:11)
[2017-11-07] MEDS: ASCORBIC ACID 500 MG TAB PO SCH ×2 (11:12→21:24)
[2017-11-07] MEDS: FAMOTIDINE 20 MG TAB PO SCH ×2 (11:12→21:24)
[2017-11-07] MEDS: MULTIPLE VITAMIN TAB PO SCH (11:13)
[2017-11-07] MEDS: HYDROcodone-ACET 5/325MG TAB PO PRN ×2 (11:14→15:50)
[2017-11-07] MEDS: NICOTINE 21MG/24 HR TOPICAL PATCH TD SCH (11:15)
[2017-11-07] MEDS: VANCOMYCIN 1,250 MG in D5W 5% 250 ML IV SCH (15:18)
[2017-11-08] MEDS: HYDROcodone-ACET 5/325MG TAB PO PRN ×2 (00:01→22:05)
[2017-11-08] MEDS: VANCOMYCIN 1,250 MG in D5W 5% 250 ML IV SCH (03:00)
[2017-11-08] MEDS: BOOST PLUS 8 ounce PO SCH ×4 (04:03→21:56)
[2017-11-08 05:30] VITALS: BP 127/79
[2017-11-08 05:55] LABS: Potassium 4.2 mmol/L (3.5-5.1)
[2017-11-08 06:00] LABS: Albumin 1.2 g/dL (3.4-5.0); BUN/Creatinine Ratio 16.5; Calcium 7.6 mg/dL (8.5-10.1)
[2017-11-08] MEDS: ALBUTEROL SULF 2.5 MG/0.5ML(0.5%) NEB SOLN NEB SCH ×4 (06:00→19:22)
[2017-11-08] MEDS: IPRATROPIUM BROM 0.5 MG/2.5ML INH SOL NEB SCH ×4 (06:00→19:21)
[2017-11-08 06:06] LABS: Bilirubin, Total 0.2 mg/dL (0.2-1.0); Total Protein 6.8 g/dL (6.4-8.2)
[2017-11-08] MEDS: SODIUM CHLORIDE 0.9% 1,000 ML IV SCH ×2 (09:07→16:13)
[2017-11-08] MEDS: cefTRIAXone 1GM/10ml IVPUSH 10 ML IV SCH (09:33)
[2017-11-08] MEDS: MULTIPLE VITAMIN TAB PO SCH ×2 (10:00→10:27)
[2017-11-08] MEDS: NICOTINE 21MG/24 HR TOPICAL PATCH TD SCH ×2 (10:00→10:27)
[2017-11-08] MEDS: AZITHROMYCIN 250 MG TAB PO SCH ×2 (10:00→10:27)
[2017-11-08] MEDS: ASCORBIC ACID 500 MG TAB PO SCH ×3 (10:00→21:55)
[2017-11-08] MEDS: FAMOTIDINE 20 MG TAB PO SCH ×3 (10:00→21:55)
[2017-11-08] MEDS: VANCOMYCIN 1,500 MG in D5W 5% 250 ML IV SCH (15:37)
[2017-11-08 16:50] VITALS: BP 137/71
[2017-11-08] MEDS: PRO-STAT 64 30ML PO SCH (21:56)
[2017-11-08 21:58] VITALS: BP 128/79
[2017-11-09] MEDS: VANCOMYCIN 1,500 MG in D5W 5% 250 ML IV SCH (02:32)
[2017-11-09] MEDS: SODIUM CHLORIDE 0.9% 1,000 ML IV SCH ×3 (02:32→17:38)
[2017-11-09 05:17] VITALS: BP 125/74
[2017-11-09] MEDS: ALBUTEROL SULF 2.5 MG/0.5ML(0.5%) NEB SOLN NEB SCH ×3 (06:21→20:06)
[2017-11-09] MEDS: IPRATROPIUM BROM 0.5 MG/2.5ML INH SOL NEB SCH ×3 (06:21→20:06)
[2017-11-09] MEDS: PRO-STAT 64 30ML PO SCH ×3 (06:36→21:36)
[2017-11-09] MEDS: BOOST PLUS 8 ounce PO SCH ×3 (06:37→21:36)
[2017-11-09 07:23] LABS: Potassium 3.6 mmol/L (3.5-5.1)
[2017-11-09 07:29] LABS: Albumin 1.2 g/dL (3.4-5.0); BUN/Creatinine Ratio 17.7; Bilirubin, Total 0.2 mg/dL (0.2-1.0); Calcium 7.3 mg/dL (8.5-10.1); Total Protein 6.8 g/dL (6.4-8.2)
[2017-11-09 09:00] VITALS: BP 119/77
[2017-11-09] MEDS: NICOTINE 21MG/24 HR TOPICAL PATCH TD SCH (10:37)
[2017-11-09] MEDS: ASCORBIC ACID 500 MG TAB PO SCH ×2 (10:37→21:34)
[2017-11-09] MEDS: FAMOTIDINE 20 MG TAB PO SCH ×2 (10:38→21:35)
[2017-11-09] MEDS: MULTIPLE VITAMIN TAB PO SCH (10:38)
[2017-11-09 13:00] VITALS: BP 123/85
[2017-11-09] MEDS: FLORASTOR (S. BOULARDII) 250 MG CAP PO SCH (14:21)
[2017-11-09] MEDS: CLINDAMYCIN 900MG IV 50 ML IV SCH ×2 (14:22→21:35)
[2017-11-09] MEDS: MORPHINE SULFATE 4 MG/ML SYR/VIAL IV PRN (16:30)
[2017-11-09 17:00] VITALS: BP 141/88
[2017-11-09 21:30] VITALS: BP 134/79
[2017-11-09] MEDS: TEMAZEPAM 15 MG CAP PO PRN (21:34)
[2017-11-09] MEDS: HYDROcodone-ACET 5/325MG TAB PO PRN (21:34)
[2017-11-10] MEDS: IPRATROPIUM BROM 0.5 MG/2.5ML INH SOL NEB SCH ×4 (00:21→19:05)
[2017-11-10] MEDS: ALBUTEROL SULF 2.5 MG/0.5ML(0.5%) NEB SOLN NEB SCH ×4 (00:21→19:05)
[2017-11-10 05:00] VITALS: BP 137/85
[2017-11-10] MEDS: CLINDAMYCIN 900MG IV 50 ML IV SCH ×3 (06:33→21:36)
[2017-11-10] MEDS: SODIUM CHLORIDE 0.9% 1,000 ML IV SCH ×3 (06:33→17:22)
[2017-11-10] MEDS: PRO-STAT 64 30ML PO SCH ×3 (06:34→22:37)
[2017-11-10] MEDS: BOOST PLUS 8 ounce PO SCH ×4 (06:34→22:00)
[2017-11-10 08:13] VITALS: BP 107/62
[2017-11-10 09:16] VITALS: BP 107/62
[2017-11-10] MEDS: FLORASTOR (S. BOULARDII) 250 MG CAP PO SCH (10:12)
[2017-11-10] MEDS: ASCORBIC ACID 500 MG TAB PO SCH ×2 (10:12→21:36)
[2017-11-10] MEDS: FAMOTIDINE 20 MG TAB PO SCH ×2 (10:12→21:36)
[2017-11-10] MEDS: MULTIPLE VITAMIN TAB PO SCH (10:12)
[2017-11-10] MEDS: NICOTINE 21MG/24 HR TOPICAL PATCH TD SCH (10:14)
[2017-11-10 11:15] LABS: Basophils # (auto) 0.1 uL; Eosinophils # (auto) 0 uL; Hemoglobin 8.9 g/dL (13.5-17.5); Lymphocytes # (auto) 1.2 uL; Mean Corpuscular Volume 80.4 fL (80.0-100.0); Monocytes # (auto) 0.8 uL; Neutrophils # (auto) 3.4 uL; White Blood Cell 5.5 10^3/uL (4.4-10.8)
[2017-11-10 11:17] LABS: Eosinophils % (auto) 0.7 % (0.0-7.0); Lymphocytes % (auto) 21.5 % (10.0-50.0); Mean Corpuscular Hemoglobin 26.5 pg (28.0-32.0); Mean Corpuscular Hgb Conc. 32.9 g/dL (32.0-36.0); Monocytes % (auto) 14.1 % (0.0-12.0); Neutrophils % (auto) 61.7 % (37.0-80.0); Nucleated Red Blood Cells % 0.1 %; Platelet Count (auto) 579 10^3/uL (140-450); Red Blood Cells 3.36 10^6/uL (4.5-5.90); Red Cell Distribution Width 15.2 % (11.8-14.3)
[2017-11-10 11:32] LABS: Albumin 1.1 g/dL (3.4-5.0); BUN/Creatinine Ratio 12.4; Bilirubin, Total 0.1 mg/dL (0.2-1.0); Calcium 6.7 mg/dL (8.5-10.1); Potassium 3.7 mmol/L (3.5-5.1); Total Protein 7.2 g/dL (6.4-8.2)
[2017-11-10 12:24] VITALS: BP 123/77
[2017-11-10] MEDS ORDERED: HYDROcodone-ACET 5/325MG TAB PO PRN (12:30)
[2017-11-10 17:07] VITALS: BP 140/82
[2017-11-10] MEDS: HYDROcodone-ACET 5/325MG TAB PO PRN (17:22)
[2017-11-10] MEDS: TEMAZEPAM 15 MG CAP PO PRN (21:36)
[2017-11-10 22:00] VITALS: BP 122/79
[2017-11-11] MEDS: IPRATROPIUM BROM 0.5 MG/2.5ML INH SOL NEB SCH ×4 (00:33→20:00)
[2017-11-11] MEDS: ALBUTEROL SULF 2.5 MG/0.5ML(0.5%) NEB SOLN NEB SCH ×4 (00:33→20:00)
[2017-11-11] MEDS: SODIUM CHLORIDE 0.9% 1,000 ML IV SCH ×3 (02:30→19:10)
[2017-11-11] MEDS: HYDROcodone-ACET 5/325MG TAB PO PRN ×3 (04:04→18:36)
[2017-11-11 05:00] VITALS: BP 132/78
[2017-11-11] MEDS: CLINDAMYCIN 900MG IV 50 ML IV SCH ×3 (05:30→21:47)
[2017-11-11] MEDS: PRO-STAT 64 30ML PO SCH ×3 (05:31→22:00)
[2017-11-11] MEDS: BOOST PLUS 8 ounce PO SCH ×4 (05:31→22:00)
[2017-11-11 06:59] LABS: Basophils # (auto) 0.1 uL; Basophils % (auto) 1.8 % (0.0-2.0); Eosinophils # (auto) 0 uL; Hemoglobin 8.3 g/dL (13.5-17.5); Lymphocytes # (auto) 1.2 uL; Monocytes # (auto) 0.8 uL; Neutrophils # (auto) 2.7 uL; White Blood Cell 4.8 10^3/uL (4.4-10.8)
[2017-11-11 07:01] LABS: Eosinophils % (auto) 0.5 % (0.0-7.0); Hematocrit 24.8 % (41.0-53.0); Lymphocytes % (auto) 25.5 % (10.0-50.0); Mean Corpuscular Hemoglobin 26.7 pg (28.0-32.0); Mean Corpuscular Hgb Conc. 33.7 g/dL (32.0-36.0); Mean Corpuscular Volume 79.1 fL (80.0-100.0); Neutrophils % (auto) 56.2 % (37.0-80.0); Nucleated Red Blood Cells % 0.2 %; Platelet Count (auto) 558 10^3/uL (140-450); Red Blood Cells 3.13 10^6/uL (4.5-5.90); Red Cell Distribution Width 14.8 % (11.8-14.3)
[2017-11-11 07:17] LABS: Calcium 7.1 mg/dL (8.5-10.1); Potassium 3.5 mmol/L (3.5-5.1)
[2017-11-11 07:22] LABS: BUN/Creatinine Ratio 14.1
[2017-11-11 08:19] VITALS: BP 128/75
[2017-11-11] MEDS: NICOTINE 21MG/24 HR TOPICAL PATCH TD SCH (10:00)
[2017-11-11] MEDS: FAMOTIDINE 20 MG TAB PO SCH ×2 (10:22→21:47)
[2017-11-11] MEDS: ASCORBIC ACID 500 MG TAB PO SCH ×2 (10:23→21:47)
[2017-11-11] MEDS: MULTIPLE VITAMIN TAB PO SCH (10:23)
[2017-11-11] MEDS: FLORASTOR (S. BOULARDII) 250 MG CAP PO SCH (10:23)
[2017-11-11 12:48] VITALS: BP 130/72
[2017-11-11 17:28] VITALS: BP 136/76
[2017-11-11 22:00] VITALS: BP_SYST 131; BP_SYST 134; BP_DIAS 75; BP_DIAS 79
[2017-11-12] MEDS: ALBUTEROL SULF 2.5 MG/0.5ML(0.5%) NEB SOLN NEB SCH ×4 (00:40→21:29)
[2017-11-12] MEDS: IPRATROPIUM BROM 0.5 MG/2.5ML INH SOL NEB SCH ×4 (00:40→21:29)
[2017-11-12 05:00] VITALS: BP 139/79
[2017-11-12] MEDS: CLINDAMYCIN 900MG IV 50 ML IV SCH (05:33)
[2017-11-12] MEDS: SODIUM CHLORIDE 0.9% 1,000 ML IV SCH ×3 (05:33→20:55)
[2017-11-12] MEDS: HYDROcodone-ACET 5/325MG TAB PO PRN ×2 (05:34→17:18)
[2017-11-12] MEDS: PRO-STAT 64 30ML PO SCH ×3 (06:19→21:40)
[2017-11-12] MEDS: BOOST PLUS 8 ounce PO SCH ×4 (06:19→21:40)
[2017-11-12 08:19] LABS: Basophils # (auto) 0.1 uL; Eosinophils # (auto) 0 uL; Hematocrit 26.3 % (41.0-53.0); Lymphocytes # (auto) 1.8 uL; Monocytes # (auto) 0.8 uL; Neutrophils # (auto) 2.4 uL; Nucleated Red Blood Cells % 0.2 %
[2017-11-12 08:21] LABS: Basophils % (auto) 1.2 % (0.0-2.0); Eosinophils % (auto) 0.4 % (0.0-7.0); Hemoglobin 8.8 g/dL (13.5-17.5); Mean Corpuscular Hemoglobin 26.3 pg (28.0-32.0); Mean Corpuscular Hgb Conc. 33.6 g/dL (32.0-36.0); Mean Corpuscular Volume 78.3 fL (80.0-100.0); Monocytes % (auto) 15.7 % (0.0-12.0); Neutrophils % (auto) 47.7 % (37.0-80.0); Platelet Count (auto) 602 10^3/uL (140-450); Red Blood Cells 3.36 10^6/uL (4.5-5.90)
[2017-11-12 08:41] LABS: BUN/Creatinine Ratio 16.1; Calcium 7.2 mg/dL (8.5-10.1); Potassium 4.1 mmol/L (3.5-5.1)
[2017-11-12 09:00] VITALS: BP 122/84
[2017-11-12] MEDS: NICOTINE 21MG/24 HR TOPICAL PATCH TD SCH (10:00)
[2017-11-12] MEDS: FLORASTOR (S. BOULARDII) 250 MG CAP PO SCH (10:23)
[2017-11-12] MEDS: MULTIPLE VITAMIN TAB PO SCH (10:23)
[2017-11-12] MEDS: FAMOTIDINE 20 MG TAB PO SCH ×2 (10:23→21:35)
[2017-11-12] MEDS: ASCORBIC ACID 500 MG TAB PO SCH ×2 (10:23→21:35)
[2017-11-12] MEDS ORDERED: VANCOMYCIN PER PHARMACY 0 MG IV SCH (12:00)
[2017-11-12 13:00] VITALS: BP 132/82
[2017-11-12] MEDS ORDERED: VANCOMYCIN 1,500 MG in D5W 5% 250 ML IV SCH (14:00)
[2017-11-12 20:00] VITALS: BP 126/76
[2017-11-12 22:00] VITALS: BP 126/76
[2017-11-13] VITALS (7 sets, daily range): BP systolic 126–136; BP diastolic 80–86
[2017-11-13] MEDS: ALBUTEROL SULF 2.5 MG/0.5ML(0.5%) NEB SOLN NEB SCH ×4 (01:32→19:12)
[2017-11-13] MEDS: IPRATROPIUM BROM 0.5 MG/2.5ML INH SOL NEB SCH ×4 (01:32→19:12)
[2017-11-13] MEDS: SODIUM CHLORIDE 0.9% 1,000 ML IV SCH ×3 (04:30→21:10)
[2017-11-13] MEDS: VANCOMYCIN 1,500 MG in D5W 5% 250 ML IV SCH ×2 (04:58→18:30)
[2017-11-13] MEDS: BOOST PLUS 8 ounce PO SCH ×4 (06:00→21:52)
[2017-11-13] MEDS: PRO-STAT 64 30ML PO SCH ×3 (06:15→21:52)
[2017-11-13 06:47] LABS: Basophils # (auto) 0.1 uL; Eosinophils # (auto) 0 uL; Eosinophils % (auto) 0.5 % (0.0-7.0); Hemoglobin 9.5 g/dL (13.5-17.5); Lymphocytes # (auto) 1.4 uL; Monocytes # (auto) 0.8 uL
[2017-11-13 06:53] LABS: Albumin 1.3 g/dL (3.4-5.0); BUN/Creatinine Ratio 15.3; Bilirubin, Total 0.1 mg/dL (0.2-1.0); Calcium 7.7 mg/dL (8.5-10.1); Potassium 4.3 mmol/L (3.5-5.1)
[2017-11-13 06:54] LABS: Basophils % (auto) 1.2 % (0.0-2.0); Hematocrit 28.7 % (41.0-53.0); Mean Corpuscular Hemoglobin 26.3 pg (28.0-32.0); Mean Corpuscular Hgb Conc. 33.2 g/dL (32.0-36.0); Mean Corpuscular Volume 79.3 fL (80.0-100.0); Monocytes % (auto) 15.4 % (0.0-12.0); Neutrophils % (auto) 56.9 % (37.0-80.0); Nucleated Red Blood Cells % 0.4 %; Platelet Count (auto) 641 10^3/uL (140-450); Red Blood Cells 3.62 10^6/uL (4.5-5.90); White Blood Cell 5.2 10^3/uL (4.4-10.8)
[2017-11-13] MEDS: FAMOTIDINE 20 MG TAB PO SCH ×2 (10:02→21:36)
[2017-11-13] MEDS: ASCORBIC ACID 500 MG TAB PO SCH ×2 (10:02→21:36)
[2017-11-13] MEDS: MULTIPLE VITAMIN TAB PO SCH (10:02)
[2017-11-13] MEDS: NICOTINE 21MG/24 HR TOPICAL PATCH TD SCH (10:06)
[2017-11-13 11:26] LABS: INR 0.97 (0.9-1.15); Prothrombin Time 10.6 sec (9.37-12.3)
[2017-11-13] MEDS: HYDROcodone-ACET 5/325MG TAB PO PRN ×2 (16:05→21:52)
[2017-11-13] MEDS ORDERED: LIDOCAINE 1% HCL (LOCAL ANESTH.) INJ 20ML MDV ID ONE (17:30)
[2017-11-13] MEDS: AMOXICILLIN/CLAVUL 875 MG TAB PO SCH (21:36)
[2017-11-13] MEDS: SODIUM CHLOR 0.9% PF (SALINE LOCK) 10ML VIAL IV SCH (21:37)
[2017-11-14] MEDS: IPRATROPIUM BROM 0.5 MG/2.5ML INH SOL NEB SCH ×4 (00:10→19:35)
[2017-11-14] MEDS: ALBUTEROL SULF 2.5 MG/0.5ML(0.5%) NEB SOLN NEB SCH ×4 (00:10→19:35)
[2017-11-14] MEDS: VANCOMYCIN 1,500 MG in D5W 5% 250 ML IV SCH (04:56)
[2017-11-14 05:00] VITALS: BP 133/81
[2017-11-14] MEDS: SODIUM CHLORIDE 0.9% 1,000 ML IV SCH ×3 (05:30→22:10)
[2017-11-14] MEDS: BOOST PLUS 8 ounce PO SCH ×4 (06:00→22:00)
[2017-11-14] MEDS: PRO-STAT 64 30ML PO SCH ×3 (06:00→22:00)
[2017-11-14 07:15] LABS: Albumin 1.3 g/dL (3.4-5.0); BUN/Creatinine Ratio 18.1; Bilirubin, Total 0.2 mg/dL (0.2-1.0); Calcium 7.5 mg/dL (8.5-10.1); Total Protein 7.5 g/dL (6.4-8.2)
[2017-11-14 07:16] LABS: Basophils # (auto) 0.1 uL; Eosinophils # (auto) 0.1 uL; Hemoglobin 8.6 g/dL (13.5-17.5); Mean Corpuscular Hemoglobin 26.6 pg (28.0-32.0)
[2017-11-14 07:18] LABS: Basophils % (auto) 1.8 % (0.0-2.0); Eosinophils % (auto) 1.3 % (0.0-7.0); Hematocrit 25.8 % (41.0-53.0); Lymphocytes # (auto) 1.1 uL; Lymphocytes % (auto) 21.5 % (10.0-50.0); Mean Corpuscular Hgb Conc. 33.3 g/dL (32.0-36.0); Mean Corpuscular Volume 79.8 fL (80.0-100.0); Monocytes # (auto) 0.7 uL; Monocytes % (auto) 14.8 % (0.0-12.0); Neutrophils # (auto) 3.1 uL; Neutrophils % (auto) 60.6 % (37.0-80.0); Nucleated Red Blood Cells % 0.1 %; Platelet Count (auto) 567 10^3/uL (140-450); Red Blood Cells 3.23 10^6/uL (4.5-5.90)
[2017-11-14 08:00] VITALS: BP 134/82
[2017-11-14 09:00] VITALS: BP 134/82
[2017-11-14] MEDS: FAMOTIDINE 20 MG TAB PO SCH ×2 (09:49→21:30)
[2017-11-14] MEDS: ASCORBIC ACID 500 MG TAB PO SCH ×2 (09:49→21:30)
[2017-11-14] MEDS: AMOXICILLIN/CLAVUL 875 MG TAB PO SCH ×2 (09:49→21:29)
[2017-11-14] MEDS: MULTIPLE VITAMIN TAB PO SCH (09:49)
[2017-11-14] MEDS: NICOTINE 21MG/24 HR TOPICAL PATCH TD SCH (10:00)
[2017-11-14 13:00] VITALS: BP 137/80
[2017-11-14] MEDS ORDERED: VANCOMYCIN 1GM/250ML 250 ML IV SCH (14:00)
[2017-11-14] MEDS: SODIUM CHLOR 0.9% PF (SALINE LOCK) 10ML VIAL IV SCH (14:58)
[2017-11-14 18:00] VITALS: BP 124/70
[2017-11-14] MEDS: VANCOMYCIN 1GM/250ML 250 ML IV SCH (18:37)
[2017-11-14] MEDS: HYDROcodone-ACET 5/325MG TAB PO PRN (21:30)
[2017-11-14 22:00] VITALS: BP 123/84
[2017-11-15 05:00] VITALS: BP 121/79
[2017-11-15] MEDS: VANCOMYCIN 1GM/250ML 250 ML IV SCH ×2 (05:41→18:11)
[2017-11-15] MEDS: PRO-STAT 64 30ML PO SCH ×3 (06:00→22:26)
[2017-11-15] MEDS: BOOST PLUS 8 ounce PO SCH ×2 (06:00→11:54)
[2017-11-15] MEDS: HYDROcodone-ACET 5/325MG TAB PO PRN ×3 (06:15→22:40)
[2017-11-15] MEDS: SODIUM CHLOR 0.9% PF (SALINE LOCK) 10ML VIAL IV SCH ×3 (06:15→22:25)
[2017-11-15] MEDS: SODIUM CHLORIDE 0.9% 1,000 ML IV SCH ×2 (06:16→15:28)
[2017-11-15] MEDS: ALBUTEROL SULF 2.5 MG/0.5ML(0.5%) NEB SOLN NEB SCH ×3 (06:55→13:10)
[2017-11-15] MEDS: IPRATROPIUM BROM 0.5 MG/2.5ML INH SOL NEB SCH ×3 (06:55→13:10)
[2017-11-15 07:38] LABS: Albumin 1.4 g/dL (3.4-5.0); BUN/Creatinine Ratio 16.8; Bilirubin, Total 0.2 mg/dL (0.2-1.0); Calcium 6.4 mg/dL (8.5-10.1); Potassium 4.3 mmol/L (3.5-5.1); Total Protein 8.1 g/dL (6.4-8.2)
[2017-11-15 08:00] VITALS: BP 112/45
[2017-11-15] MEDS: NICOTINE 21MG/24 HR TOPICAL PATCH TD SCH (10:00)
[2017-11-15] MEDS: AMOXICILLIN/CLAVUL 875 MG TAB PO SCH ×2 (10:12→22:25)
[2017-11-15] MEDS: ASCORBIC ACID 500 MG TAB PO SCH ×2 (10:13→22:26)
[2017-11-15] MEDS: MULTIPLE VITAMIN TAB PO SCH (10:13)
[2017-11-15] MEDS: FAMOTIDINE 20 MG TAB PO SCH ×2 (10:13→22:25)
[2017-11-15 13:00] VITALS: BP 127/78
[2017-11-15 16:50] VITALS: BP 125/71
[2017-11-15 20:00] VITALS: BP 124/73
[2017-11-15 22:38] VITALS: BP 124/73
[2017-11-16] VITALS (7 sets, daily range): BP systolic 109–132; BP diastolic 57–75
[2017-11-16] MEDS: VANCOMYCIN 1GM/250ML 250 ML IV SCH ×2 (06:00→18:00)
[2017-11-16] MEDS: PRO-STAT 64 30ML PO SCH ×3 (06:00→22:00)
[2017-11-16] MEDS: HYDROcodone-ACET 5/325MG TAB PO PRN ×4 (06:01→21:59)
[2017-11-16] MEDS ORDERED: INFLUENZA QUAD 2017-2018 0.5 ML SYRG IM ONE (07:30)
[2017-11-16] MEDS ORDERED: PNEUMOCOCCAL VACC POLYS 25 MCG/0.5 ML VIAL IM ONE (07:30)
[2017-11-16] MEDS: NICOTINE 21MG/24 HR TOPICAL PATCH TD SCH (10:00)
[2017-11-16] MEDS: MULTIPLE VITAMIN TAB PO SCH (10:47)
[2017-11-16] MEDS: AMOXICILLIN/CLAVUL 875 MG TAB PO SCH ×2 (10:47→21:34)
[2017-11-16] MEDS: SODIUM CHLOR 0.9% PF (SALINE LOCK) 10ML VIAL IV SCH ×2 (10:47→21:34)
[2017-11-16 11:43] LABS: Albumin 1.4 g/dL (3.4-5.0); BUN/Creatinine Ratio 14.8; Bilirubin, Total 0.1 mg/dL (0.2-1.0); Calcium 7.1 mg/dL (8.5-10.1); Potassium 3.3 mmol/L (3.5-5.1); Total Protein 8.2 g/dL (6.4-8.2)
[2017-11-17 05:27] VITALS: BP 121/69
[2017-11-17] MEDS: PRO-STAT 64 30ML PO SCH ×3 (06:00→22:00)
[2017-11-17 09:00] VITALS: BP 114/74
[2017-11-17] MEDS: NICOTINE 21MG/24 HR TOPICAL PATCH TD SCH (10:00)
[2017-11-17] MEDS: SODIUM CHLOR 0.9% PF (SALINE LOCK) 10ML VIAL IV SCH ×2 (10:22→22:13)
[2017-11-17] MEDS: AMOXICILLIN/CLAVUL 875 MG TAB PO SCH ×2 (10:32→22:13)
[2017-11-17] MEDS: VANCOMYCIN 1GM/250ML 250 ML IV SCH (10:33)
[2017-11-17] MEDS: HYDROcodone-ACET 5/325MG TAB PO PRN ×3 (10:33→22:45)
[2017-11-17 13:00] VITALS: BP 116/68
[2017-11-17 17:00] VITALS: BP 111/70
[2017-11-17 20:00] VITALS: BP 107/65
[2017-11-17 21:59] VITALS: BP 107/65
[2017-11-18] MEDS: VANCOMYCIN 1GM/250ML 250 ML IV SCH ×2 (03:54→17:59)
[2017-11-18] MEDS: HYDROcodone-ACET 5/325MG TAB PO PRN ×3 (04:09→18:11)
[2017-11-18 04:56] VITALS: BP 118/83
[2017-11-18] MEDS: PRO-STAT 64 30ML PO SCH ×2 (06:00→14:46)
[2017-11-18 08:00] VITALS: BP 110/64
[2017-11-18 09:25] VITALS: BP 110/64
[2017-11-18] MEDS: NICOTINE 21MG/24 HR TOPICAL PATCH TD SCH ×2 (10:00→10:22)
[2017-11-18] MEDS: AMOXICILLIN/CLAVUL 875 MG TAB PO SCH (10:21)
[2017-11-18] MEDS: SODIUM CHLOR 0.9% PF (SALINE LOCK) 10ML VIAL IV SCH (10:22)
[2017-11-18 13:04] VITALS: BP 115/71
[2017-11-18 17:51] VITALS: BP 116/70
== END 2017-11-18 20:40 | disposition home or self-care (01) | DRG 720 ==
LOC: ER 08:36 → TELE 08:37 → TELE-WESTW 15:59 → WEST WING 11-13 00:31
PROVIDERS: ADMIT Internal Medicine; ATTEND Internal Medicine Pulmonary Disease
PROC: 0W994ZZ Drainage of Right Pleural Cavity, Percutaneous Endoscopic Approach (ICD-10-PCS; 2017-11-02)
PROC: 0B9F8ZX Drainage of Right Lower Lung Lobe, Via Natural or Artificial Opening Endoscopic, Diagnostic (ICD-10-PCS; 2017-11-04)
PROC: 0B9D8ZX Drainage of Right Middle Lung Lobe, Via Natural or Artificial Opening Endoscopic, Diagnostic (ICD-10-PCS; 2017-11-04)
PROC: 0BD38ZX Extraction of Right Main Bronchus, Via Natural or Artificial Opening Endoscopic, Diagnostic (ICD-10-PCS; 2017-11-04)
PROC: 02HV33Z Insertion of Infusion Device into Superior Vena Cava, Percutaneous Approach (ICD-10-PCS; principal; 2017-11-13)
DX: A40.3 Sepsis due to Streptococcus pneumoniae (principal); J96.01 Acute respiratory failure with hypoxia; J69.0 Pneumonitis due to inhalation of food and vomit; G93.41 Metabolic encephalopathy; E43 Unspecified severe protein-calorie malnutrition; G93.1 Anoxic brain damage, not elsewhere classified; J90 Pleural effusion, not elsewhere classified; J15.212 Pneumonia due to Methicillin resistant Staphylococcus aureus; N17.9 Acute kidney failure, unspecified; N18.4 Chronic kidney disease, stage 4 (severe); J13 Pneumonia due to Streptococcus pneumoniae; E87.1 Hypo-osmolality and hyponatremia; J45.901 Unspecified asthma with (acute) exacerbation; E86.0 Dehydration; D63.8 Anemia in other chronic diseases classified elsewhere; E87.6 Hypokalemia; F12.90 Cannabis use, unspecified, uncomplicated; F15.90 Other stimulant use, unspecified, uncomplicated; F17.210 Nicotine dependence, cigarettes, uncomplicated; J85.0 Gangrene and necrosis of lung; N43.3 Hydrocele, unspecified; Z83.3 Family history of diabetes mellitus; Z23 Encounter for immunization; Z87.442 Personal history of urinary calculi; Z79.899 Other long term (current) drug therapy; Z68.21 Body mass index [BMI] 21.0-21.9, adult
CPT/HCPCS: 36415; 36569; 36600; 70450; 71045; 71046; 71250; 76775; 80048; 80053; 80202; 81001; 82140; 82150; 82570; 82805; 83605; 83735; 83986; 84156; 84300; 84484; 85007; 85025; 85027; 85610; 85652; 85730; 86141; 86635; 87040; 87070; 87075; 87077; 87081; 87086; 87186; 87205; 87400; 89051; 93005; 94640; 95819; 96361; 96374; 96375; G9035; J0171; J0330; J0690; J2250; J2405; J2704; J3490; J7060

== ENCOUNTER 2023-05-16 21:01 | Emergency (ER) | payer MEDICAID, OTHER ==
[~2023-05-16] VITALS: Ht 177.8 cm; Wt 77.5 kg
[2023-05-16 23:28] VITALS: BP 125/80; PULSE 95; RESP 18; TEMP 99.1; O2SAT 97
== END 2023-05-17 00:15 | disposition home or self-care (01) ==
LOC: ER 21:04
DX: S81.831A Puncture wound without foreign body, right lower leg, initial encounter (principal); F17.210 Nicotine dependence, cigarettes, uncomplicated; Z90.49 Acquired absence of other specified parts of digestive tract; X58.XXXA Exposure to other specified factors, initial encounter; Y93.89 Activity, other specified; Y92.89 Other specified places as the place of occurrence of the external cause; Y99.8 Other external cause status
CPT/HCPCS: 12001

== ENCOUNTER 2025-03-26 10:30 | Emergency (ER) | payer OTHER ==
[~2025-03-26] VITALS: Ht 177.8 cm; Wt 65.6 kg
--- NOTE | 2025-03-26 11:09 | ED.PDOC ---
History of Present Illness(SKN HPI Comments This is a 59 year old male presenting to the ED with chief complaint of rash to back. Patient reports that he had what appears to be two red [place] patches on his middle back for the past 3 days. Patient relays that the patch on the right side has been painful to him. Patient notes he believes it is possibly an insect bite. Patient denies any N/V, itchiness, fever, chills, chest pain, or back pain. Chief Complaint: Upper Extremity Time Seen by MD: 11:07 Primary Care Provider: NONE History of Present Illness: Nurses Notes, Medications, Allergies Allergies: Coded Allergies: NO KNOWN ALLERGIES (Unverified , 08/12/17) Home Meds Unable to Obtain Active Prescriptions or Reported Meds Information Source: Patient Mode of Arrival: Ambulatory Severity: Mild Timing: Days Duration: Since onset Prehospital treatment: None Location: Back Mechanism: Spontaneous Onset Developed: Rash Object: None Condition of Object: None Retained Foreign Body: Unknown Wound Type: Unknown Immunization Status of Animal: NA Tetanus: UTD Past Medical History PAST MEDICAL HISTORY: Anemia, Asthma, Cancer (Colon cancer stage 4), HIV Surgical History: Cholecystectomy Surgical History (Other): Intestine bypass Family History Family History: Reviewed,noncontributory to illness Social History Smoker: Cigarettes, Less Than 1 Pack/Day Alcohol: Denies ETOH Use Drugs: Denies Drug Use Lives In: Home Constitutional: denies: chills, diaphoresis, fatigue, fever, malaise, sweats, weakness, others EENTM: denies: blurred vision, double vision, ear bleeding, ear discharge, ear drainage, ear pain, ear ringing, eye pain, eye redness, hearing loss, mouth p ain, mouth swelling, nasal discharge, nose bleeding, nose congestion, nose pain, photophobia, tearing, throat pain, throat swelling, voice changes, others Respiratory: denies: cough, hemoptysis, orthopnea, SOB at rest, shortness of br eath, SOB with excertion, stridor, wheezing, others Cardiovascular: denies: chest pain, dizzy spells, diaphoresis, Dyspnea on exertion, edema, irregular heart beat, left arm pain, lightheadedness, palpitations, PND, syncope, others Gastrointestinal: denies: abdomen distended, abdominal pain, blood streaked bowels, constipated, diarrhea, dysphagia, difficulty swallowing, hematemesis, melena, nausea, poor appetite, poor fluid intake, rectal bleeding, rectal pain, vomiting, others Genitourinary: denies: burning, dysuria, flank pain, frequency, hematuria, incontinence, penile discharge, penile sore, pain, testicle pain, testicle swelling, urgency, others Neurological: denies: dizziness, fainting, headache, left sided numbness, left sided weakness, numbness, paresthesia, pre-existing deficit, right sided numbness, right sided weakness, seizure, speech problems, tingling, tremors, weakness, others Musculoskeletal: denies: back pain, gout, joint pain, joint swelling, muscle pain, muscle stiffness, neck pain, others Integumetry: reports: rash; denies: bruises, change in color, change in hair/nails, dryness, laceration, lesions, lumps, wounds, others Allergic/Immunocompromised: denies: Difficulty Healing, Frequent Infections, Hives, Itching, others Hematologic/Lymphatic: denies: anemia, blood clots, easy bleeding, easy bruisin g, swollen glands, others Endocrine: denies: excessive hunger, excessive sweating, excessive thirst, excessive urination, flushing, intolerance to cold, intolerance to heat, unexplained weight gain, unexplained weight loss, others Psychiatric: denies: anxiety, bipolar disorder, depression, hopeless, panic disorder, schizophrenia, sleepless, suicidal, others All Other Systems: Reviewed and Negative Physical Exam General Appearance: No Apparent Distress, Normal HEENT: Normal ENT Inspection, Pharynx Normal, TMs Normal Neck: Full Range of Motion, Non-Tender, Normal, Normal Inspection Respiratory: Chest Non-Tender, Lungs Clear, No Accessory Muscle Use, No Respiratory Distress, Normal Breath Sounds Cardiovascular: No Edema, No JVD, No Murmur, No Gallop, Normal Peripheral Pulses, Regular Rate/Rhythm Breast Exam: Deferred Gastrointestinal: No Organomegaly, Non Tender, No Pulsatile Mass, Normal Bowel Sounds, Soft Genitalia: Deferred Pelvic: Deferred Rectal: Deferred Extremities: No calf tenderness, Normal capillary refill, Normal inspection, Normal range of motion, Non-tender, No pedal edema Musculoskeletal : Apperance: Normal Neurologic: Alert, applications intern II-XII nml as Tested, No Motor Deficits, Normal Affect, Normal Mood, No Sensory Deficits Cerebellar Function: Normal Reflexes: Normal Skin: Dry, Normal Color, Rash (Flat, blanching red patch to bilateral mid back with no tenderness or increase in warmth.), Warm Lymphatic: No Adenopathy Was a procedure done? Was a procedure done?: No Differential Diagnosis (INTG) Differential Diagnosis: Abrasion, Cellulitis, Contusion, Hematoma, Insect Envenomation Differential Diagnosis: N/A Differential Diagnosis: N/A Abscess: N/A Differential Diagnosis: N/A X-Ray, Labs, Meds, VS Vital Signs Date Time Temp Pulse Resp B/P (MAP) Pulse Ox O2 Delivery O2 Flow Rate FiO2 03/26/25 10:46 97.7 81 18 138/81 (100) 97 97.7 Time of 1ST Reevaluation: 11:35 Reevaluation 1ST: Unchanged Patient Education/Counseling: Diagnosis, Treatment, Prognosis, Need For Follow Up Family Education/Counseling: Diagnosis, Treatment, Prognosis, Need For Follow Up Additional Information Reviewed patient's previous visit(s): 10/2017 for pneumonia The following tests were ordered, and results were reviewed by me: None Additional information was gathered from interviewing the following independent historian: None I reviewed and agreed with the following test results read by other provider: None I discussed treatments and results with medical personnel and: Patient Comprehensive systems review obtained and negative except for what is stated in the HPI. SEPSIS Sepsis Screen Date sepsis recognized/suspect: Mar 26, 2025 Time Sepsis recognized/suspect: 1047 Recent Procedure: No On Antibiotic Therapy: No Respiratory Rate >20: No Heart Rate >90: No Temp<36 C (96.8 F) or >38.3 C: No SBP <90 or MAP <65 mmHG: No New Acute Mental Status Change: No Is the patient on CPAP, BIPAP,: No Vital Signs Date Time Temp Pulse Resp B/P (MAP) Pulse Ox O2 Delivery O2 Flow Rate FiO2 03/26/25 10:46 97.7 81 18 138/81 (100) 97 97.7 Departure 1 Departure Time of Disposition: 11:14 Impression: Primary Impression: Cellulitis Qualified Codes: L03.818 - Cellulitis of other sites Disposition: HOME / SELF CARE / HOMELESS Condition: Good e-Prescriptions Cephalexin Monohydrate (Cephalexin) 500 Mg Tab 1 TAB PO QID, #40 TAB Prov: ANTONIO FERNANDES MD 03/26/25 Discharged With: Self, Friend Critical Care Note Critical Care Time?: No Stability Stability form required: No Heart Score Heart Score: Heart Score Response (Comments) Value History N/A 0 EKG N/A 0 Age N/A 0 Risk Factors N/A 0 Troponin N/A 0 Total 0 I personally scribed for ANTONIO FERNANDES MD ([email or web address]) on 03/26/25 at 11:09. Electron ically submitted by Zafar Luciano ([email or web address]). ANTONIO FERNANDES MD Mar 26, 2025 11:09
[2025-03-26] MEDS ORDERED: CEPH500T PO (11:16)
[2025-03-26 11:27] VITALS: BP 138/85; PULSE 78; RESP 18; TEMP 98.4; O2SAT 96
== END 2025-03-26 11:32 | disposition home or self-care (01) ==
LOC: ER 10:30
DX: L03.90 Cellulitis, unspecified (principal); J45.909 Unspecified asthma, uncomplicated; F17.210 Nicotine dependence, cigarettes, uncomplicated; Z85.038 Personal history of other malignant neoplasm of large intestine; Z90.49 Acquired absence of other specified parts of digestive tract; Z98.890 Other specified postprocedural states

== ENCOUNTER 2025-04-01 23:13 | Emergency (ER) | payer OTHER ==
[~2025-04-01 23:13] MED LIST: CEPH500T PO
== END 2025-04-02 00:21 | disposition left against medical advice (07) ==
LOC: ER 23:13
DX: Z44.9 Encounter for fitting and adjustment of unspecified external prosthetic device (principal); Z53.21 Procedure and treatment not carried out due to patient leaving prior to being seen by health care provider